=== PATIENT | male | born 1960 | race Caucasian/White ===

== ENCOUNTER 2019-12-09 06:20 | Day surgery (SDC) | payer MEDICARE ==
[~2019-12-09] VITALS: Ht 165.1 cm; Wt 130.6 kg
[~2019-12-09 06:20] MED LIST: BREO1INH3 INH; CARV12.5 PO; GLIM4TAB5 PO; METF500T13 PO; SIMV20TA22 PO; TORS20TA2 PO; TRES100I SC
[2019-12-09] MEDS ORDERED: MIDAZOLAM INJ 2 MG/2 ML VIAL (J2250) As Ordered ONE (06:36)
[2019-12-09] MEDS ORDERED: fentaNYL 100 MCG/2 ML INJECTION (J3010) As Ordered ONE (06:37)
[2019-12-09] MEDS ORDERED: ONDANSETRON 4MG/2ML VIAL (J2405) As Ordered ONE (06:37)
[2019-12-09] MEDS ORDERED: dexameTHASONE 4 MG/ML 1ML VIAL (J1100) As Ordered ONE ×2 (06:37→10:25)
[2019-12-09] MEDS ORDERED: LIDOCAINE 2% INJ 100 MG/5 ML SDV (FOR ANES.) As Ordered ONE (06:37)
[2019-12-09] MEDS ORDERED: SUGAMMADEX SODIUM 500 MG/5 ML VIAL (BRIDION) As Ordered ONE (06:38)
[2019-12-09] MEDS ORDERED: propofoL 200 MG/20 ML VIAL As Ordered ONE (06:38)
[2019-12-09] MEDS ORDERED: ROCURONIUM BROMIDE 50 MG/5 ML VIAL As Ordered ONE (06:38)
[2019-12-09] MEDS ORDERED: ePHEDrine SULFATE 25 MG/5 ML(5MG/ML) SYRINGE As Ordered ONE (06:43)
[2019-12-09] MEDS ORDERED: PHENYLephrine HCL 500 MCG/5 ML (100MCG/ML) SYRINGE (J2370) As Ordered ONE ×2 (06:43→10:32)
[2019-12-09] MEDS ORDERED: ACETAMINOPHEN 1000MG 100ML IV BTL (OFIRMEV) (J0131 PER 10MG) As Ordered ONE (06:43)
[2019-12-09] MEDS: CIPROFLOXACIN 400 MG in IV 1 EA IV ONE ×2 (07:00→08:00)
[2019-12-09] MEDS ORDERED: NOVO1INJ18 SC (07:27)
[2019-12-09] MEDS ORDERED: BACITRACIN OINT 30GM As Ordered ONE (08:11)
[2019-12-09] MEDS ORDERED: LIDOCAINE 1% SDV INJ 30 ML VIAL As Ordered ONE (08:11)
[2019-12-09] MEDS ORDERED: BUPIVACAINE HCL 0.25% 30 ML VIAL As Ordered ONE (08:11)
[2019-12-09] MEDS ORDERED: LR 1,000 ML IV ONE (08:15)
[2019-12-09] MEDS ORDERED: HumaLOG INSULIN (NovoLOG) PER UNIT As Ordered ONE ×2 (08:17→12:15)
[2019-12-09] MEDS ORDERED: HumaLOG INSULIN (NovoLOG) PER UNIT SC ONE (08:30)
--- NOTE | 2019-12-09 12:20 | RO ---
DATE OF PROCEDURE: 12/09/2019 PREPROCEDURE DIAGNOSIS: Bilateral hydroceles. POSTPROCEDURE DIAGNOSIS: Bilateral hydroceles. PROCEDURE: Bilateral hydrocelectomies. SURGEON: Humberto Diamond DO CLINICAL OUTCOMES MANAGER: None. ANESTHESIA: General. OPERATIVE INDICATIONS: This is a 59-year-old male with bilateral large hydroceles. He was brought to the operating room today for the above listed procedure. DESCRIPTION OF PROCEDURE: The patient was brought to the operating room and general anesthesia was induced. Prophylactic antibiotics were infused. He was then placed in a supine position in preparation for the procedure. At this point, an approximately 5 cm transverse incision was made over the right hemiscrotum. I then dissected down to the scrotal wall layers using electrocautery. The testicle and large hydrocele were then delivered out by the right hemiscrotum. The tunica vaginalis was then opened and a large amount of serous fluid drained out. I then removed the hydrocele sac using electrocautery. I then oversewed the edges of the hydrocele sac using a running 3-0 Vicryl suture. Once that was done, I checked for hemostasis. Any small bleeders were controlled with electrocautery. Once there was good hemostasis, I irrigated the wound using saline and then the testicle was delivered back inside the right hemiscrotum in its normal anatomic position. The dartos was then closed with a running 3-0 Vicryl suture. The skin was closed with interrupted 2-0 chromic suture. Once that was done, I turned my attention to the left side. A 5 to 6 cm transverse incision was made over the left hemiscrotum. I then dissected down through the scrotal wall layers using electrocautery. The testicle was then delivered outside the left hemiscrotum. The tunica vaginalis was then opened and then the hydrocele sac was completely excised using electrocautery. I oversewed the edges of the hydrocele sac using a running 3-0 Vicryl suture. At this point, any areas of bleeding were controlled with electrocautery. The left hemiscrotum was then irrigated out and then the testicle was delivered back inside the left hemiscrotum in its normal anatomic position. I then closed the dartos with a running 3-0 Vicryl suture. The skin was closed with 2-0 chromic interrupted sutures. At this point, Bacitracin ointment was applied and dressings were applied and this marked conclusion of the procedure. The patient was then awakened from anesthesia and transported to the recovery room in stable condition. ESTIMATED BLOOD LOSS: 15 mL. COMPLICATIONS: None. SPECIMENS: Right and left hydrocele sacs. PLAN: The patient will followup in the clinic in a few weeks for postoperative visit.
[2019-12-09] MEDS ORDERED: ONDANSETRON 4MG/2ML VIAL (J2405) IV PRN (12:30)
[2019-12-09] MEDS ORDERED: HumaLOG INSULIN (NovoLOG) PER UNIT SC SCH ×2 (12:30)
[2019-12-09] MEDS ORDERED: LR 1,000 ML IV SCH (12:30)
[2019-12-09] MEDS ORDERED: fentaNYL 100 MCG/2 ML INJECTION (J3010) IV PRN (12:30)
[2019-12-09] MEDS ORDERED: METOCLOPRAMIDE INJ 10MG/2ML VIAL (J2765) IV PRN (12:30)
[2019-12-09] MEDS ORDERED: MORPHINE 2 MG/ML 1ML VIAL (J2270) IV PRN (12:30)
[2019-12-09] MEDS ORDERED: PERCOCET 5MG/325MG TAB PO PRN ×2 (12:30)
[2019-12-09 14:25] VITALS: BP 152/82
== END 2019-12-09 14:40 | disposition home or self-care (01) ==
LOC: M SDC 06:20
PROVIDERS: ATTEND Urology
DX: N43.3 Hydrocele, unspecified (principal); I10 Essential (primary) hypertension; E78.2 Mixed hyperlipidemia; E10.9 Type 1 diabetes mellitus without complications; K21.9 Gastro-esophageal reflux disease without esophagitis; Z79.84 Long term (current) use of oral hypoglycemic drugs; Z79.899 Other long term (current) drug therapy; Z79.4 Long term (current) use of insulin; Z88.1 Allergy status to other antibiotic agents; Z88.8 Allergy status to other drugs, medicaments and biological substances
CPT/HCPCS: 55041; 88302; J0131; J0744; J1100; J2250; J2370; J2405; J3010